=== PATIENT | male | born 1960 | race Caucasian/White ===

== ENCOUNTER → 2023-12-11 11:01 | Outpatient (REF) | payer OTHER, SELFPAY | LOC: RAD 11:01 | PROVIDERS: ATTENDING PHYSICIAN Physician Assistant Medical | DX: F10.10 Alcohol abuse, uncomplicated (principal); Z87.891 Personal history of nicotine dependence | CPT/HCPCS: 76770 ==

== ENCOUNTER → 2024-02-04 09:06 | Outpatient (REF) | payer OTHER, SELFPAY | LOC: HWRCS 09:06 | PROVIDERS: ATTENDING PHYSICIAN Internal Medicine; FAMILY PHYSICIAN Physician Assistant Medical | DX: Z71.89 Other specified counseling (principal); I10 Essential (primary) hypertension | CPT/HCPCS: 93306 ==

== ENCOUNTER 2025-02-28 06:27 | Day surgery (SDC) | payer BC, SELFPAY ==
[2025-02-28 10:41] LABS: COVID-19 Antigen Negative (Negative)
== END 2025-02-28 12:42 | disposition home or self-care (01) ==
LOC: GI 06:27
PROVIDERS: ATTENDING PHYSICIAN Internal Medicine Gastroenterology
DX: Z12.11 Encounter for screening for malignant neoplasm of colon (principal); D13.39 Benign neoplasm of other parts of small intestine; K51.418 Inflammatory polyps of colon with other complication; Q43.8 Other specified congenital malformations of intestine; D12.8 Benign neoplasm of rectum; K64.8 Other hemorrhoids; Z86.0100 Personal history of colon polyps, unspecified
CPT/HCPCS: 45385; 45380; 87811; 88305; 88342

== ENCOUNTER → 2025-03-04 16:28 | Outpatient (REF) | payer BC, SELFPAY ==
[2025-03-04 17:35] LABS: Hemoglobin 14.6 g/dL (13.0-18.0)
== END ==
LOC: REG 16:28
PROVIDERS: ATTENDING PHYSICIAN Internal Medicine Gastroenterology; FAMILY PHYSICIAN Physician Assistant Medical
DX: K92.2 Gastrointestinal hemorrhage, unspecified (principal)
CPT/HCPCS: 36415; 85018